=== PATIENT | male | born 1990 | race Caucasian/White ===

== ENCOUNTER 2019-02-12 23:36 | Inpatient (IN) | payer SELFPAY ==
--- NOTE | 2019-02-13 01:11 | PDOC ---
*Physical Exam - Vital Signs Last Vital Signs Temp Pulse Resp BP Pulse Ox 98 F 67 20 146/78 99 02/12/19 23:46 02/12/19 23:46 02/12/19 23:46 02/12/19 23:46 02/12/19 23:46 ED Treatment Course - LABORATORY CBC & Chemistry Diagram: 02/13/19 01:34 02/13/19 01:34 Medical Decision Making - Medical Decision Making 02/13/19 01:11 Patient seen by the advanced practice provider under my direct supervision. Ancillary testing reviewed as necessary. I agree with plan as outlined by the advanced practice provider. *DC/Admit/Observation/Transfer Diagnosis at time of Disposition: Flank pain - Referrals Referrals: Nic Faustin MD., MD [Primary Care Provider] - - Patient Instructions - Post Discharge Activity
[2019-02-13] MEDS ORDERED: KETOROLAC TROMETHAMINE 30 MG/1 ML VIAL IVPUSH ONE (01:15)
--- NOTE | 2019-02-13 01:21 | PDOC ---
History of Present Illness - General Chief Complaint: Pain, Acute Stated Complaint: BACK PAIN Time Seen by Provider: 02/13/19 01:08 History Source: Patient Exam Limitations: No Limitations - History of Present Illness Travel History: No Initial Comments: 02/13/19 01:22 HISTORY OF PRESENT ILLNESS: 28-year-old male with past medical history of bilateral kidney stones presents emergency Department for worsening left flank pain over the past few days. Patient reports he was seen and evaluated by Dr. Faustin of urology and told he had kidney stones and if things were to get worse to present to the emergency department. Patient denies dysuria, hematuria , fevers, chills, nausea, vomiting. No recent travel or sick contacts. PAST MEDICAL HISTORY: see HPI SURGICAL HISTORY: Denies ALLERGIES: No known drug allergies REVIEW OF SYSTEMS General/Constitutional: Denies fever or chills. Denies weakness, weight change. HEENT: Denies change in vision. Denies ear pain or discharge. Denies sore throat. Cardiovascular: Denies chest pain or shortness of breath. Respiratory: Denies cough, wheezing, or hemoptysis. Gastrointestinal: Denies nausea, vomiting, diarrhea or constipation. Denies rectal bleeding. Genitourinary: see HPI Musculoskeletal: Denies joint or muscle swelling or pain. Denies neck or back pain. Skin and breasts: Denies rash or easy bruising. Neurologic: Denies headache, vertigo, loss of consciousness, or loss of sensation. Psychiatric: Denies depression or anxiety. Endocrine: Denies increased thirst. Denies abnormal weight change. Hematologic/Lymphatic: Denies anemia, easy bleeding, or history of blood clots. Allergic/Immunologic: Denies hives or skin allergy. Denies latex allergy. PHYSICAL EXAM General Appearance: Well-appearing, appropriately dressed. No apparent distress , no intoxication. Respiratory/Chest: Lungs CTAB. No shortness of breath, chest tenderness, respiratory distress, accessory muscle use. No crackles, rales, rhonchi, stridor , wheezing, dullness Cardiovascular: RRR. S1, S2. No JVD, murmur, bradycardia, tachycardia. Vascular Pulses: Dorsalis-Pedis (R): 2+, Dorsalis-Pedis (L): 2+ Gastrointestinal/Abdominal: Normal bowel sounds. Abdomen soft, non-distended. No tenderness or rebound tenderness. No organomegaly, pulsatile mass, guarding, hernia, hepatomegaly, splenomegaly. Lymphatic: No adenopathy, tenderness. Musculoskeletal/Extremities: Normal inspection. FROM of all extremities, normal capillary refill. Pelvis Stable. No CVA tenderness. No tenderness to extremities, pedal edema, swelling, erythema or deformity. Past History - Past Medical History Allergies/Adverse Reactions: Allergies Allergy/AdvReac Type Severity Reaction Status Date / Time No Known Allergies Allergy Unverified 02/13/19 05:02 Home Medications: Ambulatory Orders Cephalexin [Keflex] 500 mg PO BID 7 Days #14 capsule 02/14/19 - Suicide/Smoking/Psychosocial Hx Smoking History: Never smoked Hx Alcohol Use: No Drug/Substance Use Hx: No *Physical Exam - Vital Signs Last Vital Signs Temp Pulse Resp BP Pulse Ox 98 F 67 20 146/78 99 02/12/19 23:46 02/12/19 23:46 02/12/19 23:46 02/12/19 23:46 02/12/19 23:46 ED Treatment Course - LABORATORY CBC & Chemistry Diagram: 02/13/19 01:34 02/13/19 01:34 Medical Decision Making - Medical Decision Making 02/13/19 01:23 A/P: 28-year-old male with left flank pain Differential diagnosis includes renal calculi, pyelonephritis, infected stone Urinalysis Urine culture CBC, BMP Toradol 30 mg IV push now Renal ultrasound Reassess 02/13/19 03:11 Ultrasound as read by imaging second language tutor: Right kidney measures 9.7 cm x 4.4 senders by 6.0 cm. No right hydronephrosis. Left kidney measures 11.9 cm by 6.4 cm x 6.2 cm. There is a moderate left hydronephrosis. Therefore the possibility of an obstruction lower down in the left ureter should be considered. Urinalysis notable for trace leukoesterase and 73 WBCs on high-power field. Spiral CT for kidney stone 02/13/19 04:13 Case discussed with who accepts patient for Med/Surg admission. 02/15/19 04:05 *DC/Admit/Observation/Transfer Diagnosis at time of Disposition: Renal calculus, left, UTI (urinary tract infection) - Discharge Dispostion Disposition: HOME Condition at time of disposition: Good Decision to Admit order: Yes - Referrals - Patient Instructions - Post Discharge Activity
[2019-02-13 01:52] LABS: BASO % 0.8 % (0-2.0); EOS % 1.9 % (0-4.5); HEMATOCRIT 43.1 % (35.4-49); HEMOGLOBIN 14.8 GM/dL (11.7-16.9); MCH 30.9 pg (25.7-33.7); MCHC 34.3 g/dl (32.0-35.9); MEAN CELL VOLUME 90.2 fl (80-96); MEAN PLT VOLUME 6.9 fl (7.5-11.1); MONO % 7.3 % (3.8-10.2); PLATELET COUNT 262 K/MM3 (134-434); RBC 4.78 M/mm3 (4.00-5.60); RDW 13.3 % (11.9-15.9); WHITE BLOOD COUNT 8.6 K/mm3 (4.0-10.0)
[2019-02-13 02:16] LABS: ANION GAP 2 MMOL/L (8-16); BLOOD UREA NITROGEN 11 mg/dL (7-18); CALCIUM 9.2 mg/dL (8.5-10.1); CHLORIDE 107 mmol/L (98-107); CO2 29 mmol/L (21-32); CREATININE 0.7 mg/dL (0.55-1.3); GLUCOSE,RANDOM 104 mg/dL (74-106); POTASSIUM 3.7 mmol/L (3.5-5.1); SODIUM 138 mmol/L (136-145)
[2019-02-13 02:20] LABS: URINE APPEARANCE Clear; URINE BILIRUBIN Negative (NEGATIVE); URINE COLOR Yellow; URINE GLUCOSE (UA) Negative (NEGATIVE); URINE KETONE Negative (NEGATIVE); URINE LEUK ESTERASE Trace (NEGATIVE); URINE NITRITE Negative (NEGATIVE); URINE PROTEIN Negative (NEGATIVE); URINE UROBILINOGEN 0.2 mg/dL (0.2-1.0)
[2019-02-13 02:39] LABS: EPI CELLS 8.7 /HPF (0-5); URINE BACTERIA 5.6 /hpf (NEGATIVE); URINE CASTS 2.33 /hpf (0-8); URINE RBC 8.4 /hpf (0-4); URINE WBC 73.7 /hpf (0-5)
[2019-02-13 02:54] LABS: URINE CRYSTALS REVIEW /hpf
[2019-02-13] MEDS ORDERED: CEFTRIAXONE 1 GM in DEXTROSE 5%-WATER - 100 ML IVPB ONE (03:49)
--- NOTE | 2019-02-13 04:11 | HP ---
CHIEF COMPLAINT:Left Flank pain. PCP:Dr Daja Arshad , Dr. Faustin Urologist HISTORY OF PRESENT ILLNESS: 28-year-old male with past medical history of bilateral kidney stones presents emergency Department for worsening left flank pain over the past few days. Patient reports he was seen and evaluated by Dr. Faustin of urology and told he had kidney stones and if things were to get worse to present to the emergency department. Patient denies dysuria, hematuria, fevers, chills, , vomiting.but reports Nausea x 4 . no fever but chills, the left flank pain 7/10 radiated to left inguinal area . reports some headache and some congestion last week other rowell ros is negative ER course was notable for: (1)US kindney , Spiral CT (2)CBC, CMP , UA (3)Ceftriaxone Recent Travel: denies PAST MEDICAL HISTORY: none PAST SURGICAL HISTORY: appendectomy Social History:work in a restaurant Smoking:denies Alcohol:socially Drugs: denies Family History: none HOME MEDICATIONS:none REVIEW OF SYSTEMS CONSTITUTIONAL: Absent: fever, chills, diaphoresis, generalized weakness, malaise, loss of appetite, weight change HEENT: Absent: rhinorrhea, nasal congestion, throat pain, throat swelling, difficulty swallowing, mouth swelling, ear pain, eye pain, visual changes CARDIOVASCULAR: Absent: chest pain, syncope, palpitations, irregular heart rate, lightheadedness , peripheral edema RESPIRATORY: Absent: cough, shortness of breath, dyspnea with exertion, orthopnea, wheezing, stridor, hemoptysis GASTROINTESTINAL: Absent: abdominal pain, abdominal distension, nausea, vomiting, diarrhea, constipation, melena, hematochezia GENITOURINARY: Absent: dysuria, frequency, urgency, hesitancy, hematuria, flank pain, genital pain MUSCULOSKELETAL: Absent: myalgia, arthralgia, joint swelling, back pain, neck pain SKIN: Absent: rash, itching, pallor HEMATOLOGIC/IMMUNOLOGIC: Absent: easy bleeding, easy bruising, lymphadenopathy, frequent infections ENDOCRINE: Absent: unexplained weight gain, unexplained weight loss, heat intolerance, cold intolerance NEUROLOGIC: Absent: headache, focal weakness or paresthesias, dizziness, unsteady gait, seizure, mental status changes, bladder or bowel incontinence PSYCHIATRIC: Absent: anxiety, depression, suicidal or homicidal ideation, hallucinations. PHYSICAL EXAMINATION Vital Signs - 24 hr 02/12/19 23:46 Temperature 98 F Pulse Rate 67 Respiratory 20 Rate Blood Pressure 146/78 O2 Sat by Pulse 99 Oximetry (%) GENERAL: Awake, alert, and fully oriented, in no acute distress. HEAD: Normal with no signs of trauma. EYES: JET, EOMI , , sclera anicteric, conjunctiva clear. ENT:. Moist mucous membranes. NECK: Normal range of motion, supple without lymphadenopathy, JVD, or masses. LUNGS: Breath sounds equal, clear to auscultation bilaterally. No wheezes, and no crackles. No accessory muscle use. HEART: Regular rate and rhythm, normal S1 and S2 without murmur, rub or gallop. ABDOMEN: Soft, nontender, not distended, normoactive bowel sounds, no guarding, + Left CVA tenderness MUSCULOSKELETAL: Normal range of motion at all joints. No bony deformities or tenderness. UPPER EXTREMITIES: 2+ pulses, warm, well-perfused. No cyanosis. No clubbing. No peripheral edema. LOWER EXTREMITIES: 2+ pulses, warm, well-perfused. No calf tenderness. No peripheral edema. NEUROLOGICAL: Cranial nerves II-XII intact. Normal speech. Normal gait. PSYCHIATRIC: Cooperative. Good eye contact. SKIN: Warm, dry, normal turgor, Laboratory Results - last 24 hr 02/13/19 02/13/19 02/13/19 01:34 01:34 01:41 WBC 8.6 RBC 4.78 Hgb 14.8 Hct 43.1 MCV 90.2 MCH 30.9 MCHC 34.3 RDW 13.3 Plt Count 262 MPV 6.9 L Absolute Neuts (auto) 3.9 Neutrophils % 46.0 Lymphocytes % 44.0 H Monocytes % 7.3 Eosinophils % 1.9 Basophils % 0.8 Nucleated RBC % 0 Sodium 138 Potassium 3.7 Chloride 107 Carbon Dioxide 29 Anion Gap 2 L BUN 11 Creatinine 0.7 Creat Clearance w eGFR 133.33 Random Glucose 104 Calcium 9.2 Urine Color Yellow Urine Appearance Clear Urine pH 6.0 Ur Specific [place] 1.020 Urine Protein Negative Urine Glucose (UA) Negative Urine Ketones Negative Urine Blood 2+ H Urine Nitrite Negative Urine Bilirubin Negative Urine Urobilinogen 0.2 Ur Leukocyte Esterase Trace Urine WBC (Auto) 73.7 Urine RBC (Auto) 8.4 Urine Casts (Auto) 2.33 U Epithel Cells (Auto) 8.7 Urine Crystals (Auto) Review A* Urine Bacteria (Auto) 5.6 Ultrasound as read by imaging continuous improvement engineer: Right kidney measures 9.7 cm x 4.4 senders by 6.0 cm. No right hydronephrosis. Left kidney measures 11.9 senders by 6.4 cm x 6.2 cm. There is a moderate left hydronephrosis. Therefore the possibility of an obstruction lower down in the left ureter should be considered. UA: Urinalysis notable for trace leukoesterase and 73 WBCs on high-power field. Spiral CT for kidney: left mid urethral kidney stone 1.4 cm x 8 mm , with moderate left hydronephrosis/ hydroureter, no right ureter stone , fatty liver noted. ASSESSMENT/PLAN: 28 year old male with no pmhx presented with sever left flank pain was found to have left urethral stone with mild hydronephrosis admitted to M/S for further evaluation. # Left obstructed Urethral stones with left hydronephrosis /hydrourether # complicated UTI * sever pain ,UA trace LE, +2 Blood , WBC 79 * pain control with toradol * IV fluids NS @ 150 CC/hr * ABx Ceftrixone 1 gm daily for 5-7 days * Uro consult Dr Faustin * NPO for possible lethirotripsy in AM * strain urine * flomax daily 0.4 to help pass the stone * will need stone analysis after lithirotripsy # Fatty liver , follow up out pt , consulted about diet and life style changes and avoid alcohol. # FEN * F: NS @ 150 CC/hr * Monitor lytes * NPO for now #proph * DVTS: SCDS, B/L , early ambulation # dispo * Obs M/S # Full code Visit type - Emergency Visit Emergency Visit: Yes ED Registration Date: 02/13/19 Care time: The patient presented to the Emergency Department on the above date and was hospitalized for further evaluation of their emergent condition. - New Patient This patient is new to me today: Yes Date on this admission: 02/13/19 - Critical Care Critical Care patient: No
--- NOTE | 2019-02-13 04:52 | PN ---
Teaching Attending Note Name of Resident: Adam Mann ATTENDING PHYSICIAN STATEMENT I saw and evaluated the patient. I reviewed the resident's note and discussed the case with the resident. I agree with the resident's findings and plan as documented. SUBJECTIVE: Patient is a 28-year-old man with past medical history of bilateral kidney stones who presents to the ER for worsening left flank pain over the past few days. Patient reports he was seen and evaluated by Dr. Faustin of urology and told he had kidney stones and if things were to get worse to present to the emergency department. Has nausea and says that he had hematuria 2 months ago when the pain started. Patient denies dysuria, hematuria at this time, fevers, chills, vomiting, headache, SOB or change in bowel habit. He does not smoke, drink alcohol use any illicit drugs. No FH of kidney stones and he has not had a workup to search for stone disease risk factor. He is with 2 children and works as a Director Compensation in a restaurant. OBJECTIVE: Alert Vital Signs Period Temp Pulse Resp BP Sys/Lares Pulse Ox Last 24 Hr 98 F 67 20 146/78 99 HEENT: No Jaundice, eye redness or discharge, PERRLA, EOMI. Normocephalic, atraumatic. External ears are normal and hearing is grossly intact. No nasal discharge. Neck: Supple, nontender. No palpable adenopathy or thyromegaly. No JVD Chest: Good effort. Clear to auscultation and percussion. Heart: Regular. No S3, rub or murmur Abdomen: Not distended, soft, nontender and no HSM. No rebound or guarding. Normal bowel sounds. Ext: Peripheral pulses intact. No leg edema. Skin: Warm and dry. No petechiae, rash or ecchymosis. Neuro: Alert. Oriented x3. CN 2-12 grossly intact. Sensation grossly intact in all four extremities and DTR are symmetric. Psych: Appropriate mood and affect. Good insight. Current Medications Generic Name Dose Route Start Last Admin Trade Name Freq PRN Reason Stop Dose Admin Ceftriaxone Sodium 1 gm/ 100 mls @ 200 mls/hr 02/13/19 03:49 Dextrose IVPB 02/13/19 04:18 ONCE ONE Ketorolac Tromethamine 30 mg 02/13/19 01:15 02/13/19 01:45 Toradol Injection - IVPUSH 02/13/19 01:16 30 mg ONCE ONE Administration Abnormal Lab Results 02/13/19 02/13/19 02/13/19 01:34 01:34 01:41 MPV 6.9 L Lymphocytes % 44.0 H Anion Gap 2 L Urine Blood 2+ H Urine Crystals (Auto) Review A* ASSESSMENT AND PLAN: 1. Kidney stone disease - CT scan of the abdomen/pelvis without contrast showed an obstructing left ureteral stone with moderate hydronephrosis/hydrourter. There is evidence of UTI and urine culture is pending. INR pending. Patient started on IV Rocephin, toradol and will get flomax as well as IV NS at 150 ml/ hour. Being kept NPO and urology consulted. Will strain his urine. Upon discharge will benefit from outpatient comprehensive workup to search for stone disease risk factor. 2. DVT prophylaxis - Lovenox 40 mg SQ q 24 hours. 3. Advance directives - Full code
[2019-02-13] MEDS ORDERED: ACETAMINOPHEN 325 MG TABLET (FP) PO PRN (05:02)
[2019-02-13] MEDS ORDERED: KETOROLAC TROMETHAMINE 15 MG/ML VIAL IVPUSH PRN (05:02)
[2019-02-13] MEDS ORDERED: CEFTRIAXONE 1 GM/50 ML BAG ONE ×2 (05:43→07:44)
[2019-02-13] MEDS: SODIUM CHLORIDE 1,000 ML IV SCH ×2 (05:55→13:05)
[2019-02-13] MEDS ORDERED: cefTRIAXone SODIUM 1 GM VIAL ONE (07:43)
[2019-02-13] MEDS ORDERED: TAMSULOSIN HCL 0.4 MG CAP ONE (07:43)
[2019-02-13] MEDS: TAMSULOSIN HCL 0.4 MG CAP PO SCH (08:10)
[2019-02-13] MEDS ORDERED: ENOXAPARIN NA (PORCINE) 40 MG/0.4 ML DISP.SYRIN SQ SCH (10:00)
--- NOTE | 2019-02-13 12:31 | PN ---
Physical Exam: SUBJECTIVE: Patient seen and examined at bedside. no acute events since admission. pain is ctl. denies fever, cp ,sob, n/v/d OBJECTIVE: Vital Signs Period Temp Pulse Resp BP Sys/Lares Pulse Ox Last 24 Hr 97.5 F-98 F 59-67 14-20 121-146/74-78 99-99 GENERAL: Awake, alert, and fully oriented, in no acute distress. HEAD: Normal with no signs of trauma. EYES: JET, EOMI , , sclera anicteric, conjunctiva clear. ENT:. Moist mucous membranes. NECK: Normal range of motion, supple without lymphadenopathy, JVD, or masses. LUNGS: CTAB HEART: Regular rate and rhythm, normal S1 and S2 without murmur, rub or gallop. ABDOMEN: Soft, nontender, not distended, normoactive bowel sounds, no guarding, + Left CVA tenderness MUSCULOSKELETAL: Normal range of motion at all joints. No bony deformities or tenderness. UPPER EXTREMITIES: 2+ pulses, warm, well-perfused. No cyanosis. No clubbing. No peripheral edema. LOWER EXTREMITIES: 2+ pulses, warm, well-perfused. No calf tenderness. No peripheral edema. NEUROLOGICAL: Cranial nerves II-XII intact. Normal speech. Normal gait. PSYCHIATRIC: Cooperative. Good eye contact. SKIN: Warm, dry, normal turgor, Laboratory Results - last 24 hr 02/13/19 02/13/19 02/13/19 01:34 01:34 01:41 WBC 8.6 RBC 4.78 Hgb 14.8 Hct 43.1 MCV 90.2 MCH 30.9 MCHC 34.3 RDW 13.3 Plt Count 262 MPV 6.9 L Absolute Neuts (auto) 3.9 Neutrophils % 46.0 Lymphocytes % 44.0 H Monocytes % 7.3 Eosinophils % 1.9 Basophils % 0.8 Nucleated RBC % 0 Sodium 138 Potassium 3.7 Chloride 107 Carbon Dioxide 29 Anion Gap 2 L BUN 11 Creatinine 0.7 Creat Clearance w eGFR 133.33 Random Glucose 104 Calcium 9.2 Urine Color Yellow Urine Appearance Clear Urine pH 6.0 Ur Specific [place] 1.020 Urine Protein Negative Urine Glucose (UA) Negative Urine Ketones Negative Urine Blood 2+ H Urine Nitrite Negative Urine Bilirubin Negative Urine Urobilinogen 0.2 Ur Leukocyte Esterase Trace Urine WBC (Auto) 73.7 Urine RBC (Auto) 8.4 Urine Casts (Auto) 2.33 U Epithel Cells (Auto) 8.7 Urine Crystals (Auto) Review A* Urine Bacteria (Auto) 5.6 Active Medications Generic Name Dose Route Start Last Admin Trade Name Freq PRN Reason Stop Dose Admin Acetaminophen 650 mg 02/13/19 05:02 Tylenol - PO Q4H PRN PAIN LEVEL 1-5 Sodium Chloride 1,000 mls @ 150 mls/hr 02/13/19 05:15 02/13/19 05:55 Normal Saline - IV 150 mls/hr ASDIR ESDRAS Administration Ceftriaxone Sodium 1 gm/ 50 mls @ 100 mls/hr 02/14/19 10:00 Dextrose IVPB DAILY [facility] Protocol Ketorolac Tromethamine 15 mg 02/13/19 05:02 Toradol Injection - IVPUSH 02/18/19 05:01 Q6H PRN PAIN LEVEL 6-10 Tamsulosin HCl 0.4 mg 02/13/19 08:30 02/13/19 08:10 Flomax - PO 0.4 mg DAILY@0830 ESDRAS Administration Ultrasound as read by imaging literacy education professor: Right kidney measures 9.7 cm x 4.4 senders by 6.0 cm. No right hydronephrosis. Left kidney measures 11.9 senders by 6.4 cm x 6.2 cm. There is a moderate left hydronephrosis. Therefore the possibility of an obstruction lower down in the left ureter should be considered. UA: Urinalysis notable for trace leukoesterase and 73 WBCs on high-power field. Spiral CT for kidney: left mid urethral kidney stone 1.4 cm x 8 mm , with moderate left hydronephrosis/ hydroureter, no right ureter stone , fatty liver noted. ASSESSMENT/PLAN: 28 yo M with no pmhx presented with sever left flank pain was found to have left urethral stone with mild hydronephrosis admitted to M/S for further evaluation. #Left Urethral stones with left hydronephrosis /hydrourether #complicated UTI UA trace LE, +2 Blood , WBC 79 f/u Ucx pain control with toradol IV fluids NS @ 150 CC/hr ABx Ceftrixone 1 gm daily for 5-[address] Faustin NPO for possible lethirotripsy strain urine flomax daily 0.4 to help pass the stone may need rpt CT as outpt post procedure #Fatty liver , follow up out pt , consulted about diet and life style changes and avoid alcohol. #FEN F: NS @ 150 CC/hr Monitor lytes NPO #proph DVTS: SCDS, B/L , early ambulation # dispo Obs M/S # Full code Visit type - Emergency Visit Emergency Visit: Yes ED Registration Date: 02/13/19 Care time: The patient presented to the Emergency Department on the above date and was hospitalized for further evaluation of their emergent condition. - New Patient This patient is new to me today: Yes Date on this admission: 02/13/19 - Critical Care Critical Care patient: No
[2019-02-13 12:55] VITALS: BMI 26.7
[2019-02-13] MEDS ORDERED: FLU VACCINE QUAD 60 MCG/0.5 ML (MDV 18-19) IM ONE (13:30)
--- NOTE | 2019-02-13 14:42 | EKG ---
Test Reason : Blood Pressure : / mmHG Vent. Rate : 060 BPM Atrial Rate : 060 BPM P-R Int : 206 ms QRS Dur : 090 ms QT Int : 394 ms P-R-T Axes : 038 058 035 degrees QTc Int : 394 ms NORMAL SINUS RHYTHM NORMAL ECG NO PREVIOUS ECGS AVAILABLE Confirmed by Nakul Traore ([id number]) on 02/13/2019 2:41:36 PM Referred By: Confirmed By:Nakul Traore
--- NOTE | 2019-02-13 16:45 | PN ---
Teaching Attending Note Name of Resident: Mu Herbert ATTENDING PHYSICIAN STATEMENT I saw and evaluated the patient. I reviewed the resident's note and discussed the case with the resident. I agree with the resident's findings and plan as documented. SUBJECTIVE:continues to have pain. denies Cp, SOB, fever, chills, N/V/C/D OBJECTIVE: Last Vital Signs Temp Pulse Resp BP Pulse Ox 97.8 F 80 18 126/59 L 99 02/13/19 15:27 02/13/19 15:27 02/13/19 15:27 02/13/19 15:27 02/13/19 12:33 General NAD ASSESSMENT AND PLAN: 28yo M with PMH nephrolithasis presented to the ER with L flank pain and found to have obstructing L renal stone with hydronephrosis 1. L obstructing nephrolithasis with hydronephrosis- NPO for ESW therapy today. currently being sent to OR for procedure. cont NPO, IVF, flomax and pain control. will need stone analysis to determine etiology 2. UTI- on ceftriaxone day 1. f/u Cx 3. DVT ppx- EAM 4. anticipate d/c in next 24-48H
[2019-02-13] MEDS ORDERED: MIDAZOLAM HCL 2 MG/2 ML SINGLE DOSE VIAL ONE (16:47)
[2019-02-13] MEDS ORDERED: PROPOFOL 20 ML ONE (16:47)
[2019-02-13] MEDS ORDERED: ceFAZolin SODIUM 1 GM VIAL IVPB ONE (17:54)
[2019-02-13] MEDS ORDERED: ceFAZolin SODIUM 1 GM VIAL ONE (17:54)
[2019-02-13] MEDS ORDERED: DEXAMETHASONE SOD PHOSPHATE 4 MG/1 ML VIAL ONE (18:02)
--- NOTE | 2019-02-13 18:41 | OP ---
Operative Note - Note: Operative Date: 02/13/19 Pre-Operative Diagnosis: Left ureteral calculus Operation: Left ureteroscopy laser lithotripsy stent placement Findings: 13 mm left distal ureteral stone Post-Operative Diagnosis: Same as Pre-op Surgeon: Nic Faustin MD. Anesthesia: General Estimated Blood Loss (mls): 5 Drains & Tubes with Location: left DJ stent Operative Report Dictated: Yes
[2019-02-13] MEDS ORDERED: ONDANSETRON 4 MG/2 ML VIAL IVPUSH PRN (18:47)
[2019-02-13] MEDS ORDERED: oxyCODONE HCL 5 MG TABLET PO PRN (18:47)
[2019-02-13] MEDS ORDERED: LACTATED RINGERS SOLUTION 1,000 ML IV SCH (19:00)
--- NOTE | 2019-02-13 19:52 | OP ---
DATE OF OPERATION: 02/13/2019 PREOPERATIVE DIAGNOSIS: Left ureteral calculus. POSTOPERATIVE DIAGNOSIS: Left ureteral calculus. PROCEDURE: Left ureteroscopy, laser lithotripsy, and stent placement. HISTORY: This is a pleasant, 28-year-old gentleman with a history of severe, left-sided hydronephrosis and renal colic. Patient was noted to have a 13-mm distal ureteral calculus with obstruction. After discussing treatment options, the patient elected to undergo the above-stated procedure. Risks and benefits of treatment alternatives were discussed in detail. All questions were answered. BRIEF OPERATIVE NOTE: Patient was brought into the operating room, placed in supine position. Once general anesthesia was administered, intravenous antibiotics were given. A timeout was performed. The patient was transferred to the dorsal lithotomy position, prepped and draped in standard sterile fashion. Intravenous antibiotics were given. At this time, a 22-Indonesian cystoscope sheath was placed in the bladder under direct vision. The urethra was normal. The prostate was SUBJECTIVE:-occlusive. The bladder was unremarkable. At this time, a 0.038 guidewire was passed into the left renal pelvis. This was confirmed fluoroscopically. A 7.5-Indonesian flexible Storz ureteroscope was then passed alongside the wire into the distal ureter. At which time, the stone was visualized clearly. The 365-micron fiber was used to fragment the stone in multiple small fragments which took approximately 20 minutes. No fragments appeared to proceed up antegrade. At this time, a 22-cm, 6-Indonesian, double-J stent was placed under fluoroscopic guidance. All other instruments were removed. The bladder was drained and the patient brought to recovery room in stable and satisfactory condition. Faisal [id number]
[2019-02-13] MEDS ORDERED: PT OWN MED DRAWER 7, Y5N ONE (21:40)
[2019-02-14] MEDS: SODIUM CHLORIDE 1,000 ML IV SCH (05:43)
--- NOTE | 2019-02-14 08:19 | DS ---
Physical Exam: SUBJECTIVE: Patient seen and examined at bedside. no acute events overnight. POD1 Left ureteroscopy laser lithotripsy stent placement. pain is ctl. denies fever, cp ,sob, n/v/d OBJECTIVE: Vital Signs Period Temp Pulse Resp BP Sys/Lares Pulse Ox Last 24 Hr 97.7 F-98.1 F 59-91 14-18 103-134/44-76 99-100 PHYSICAL EXAM GENERAL: Awake, alert, and fully oriented, in no acute distress. HEAD: Normal with no signs of trauma. EYES: JET, EOMI , , sclera anicteric, conjunctiva clear. ENT:. Moist mucous membranes. NECK: Normal range of motion, supple without lymphadenopathy, JVD, or masses. LUNGS: CTAB HEART: Regular rate and rhythm, normal S1 and S2 without murmur, rub or gallop. ABDOMEN: Soft, nontender, not distended, normoactive bowel sounds, no guarding, no CVA tenderness MUSCULOSKELETAL: Normal range of motion at all joints. No bony deformities or tenderness. UPPER EXTREMITIES: 2+ pulses, warm, well-perfused. No cyanosis. No clubbing. No peripheral edema. LOWER EXTREMITIES: 2+ pulses, warm, well-perfused. No calf tenderness. No peripheral edema. NEUROLOGICAL: Cranial nerves II-XII intact. Normal speech. Normal gait. PSYCHIATRIC: Cooperative. Good eye contact. SKIN: Warm, dry, normal turgor, LABS Ultrasound as read by imaging circulation manager: Right kidney measures 9.7 cm x 4.4 senders by 6.0 cm. No right hydronephrosis. Left kidney measures 11.9 senders by 6.4 cm x 6.2 cm. There is a moderate left hydronephrosis. Therefore the possibility of an obstruction lower down in the left ureter should be considered. UA: Urinalysis notable for trace leukoesterase and 73 WBCs on high-power field. Spiral CT for kidney: left mid urethral kidney stone 1.4 cm x 8 mm , with moderate left hydronephrosis/ hydroureter, no right ureter stone , fatty liver noted. HOSPITAL COURSE: Date of Admission:02/13/19 Date of Discharge: 02/14/19 28 yo M with no pmhx presented with sever left flank pain was found to have left urethral stone with mild hydronephrosis Admitted for Left Urethral stones with left hydronephrosis /hydrourether, now POD1 Left ureteroscopy laser lithotripsy stent placement w/o complication. Uro consulted Dr Faustin. stressed importance that he needs to f/u with uro for stent removal. food avoidance that can potentiate stone formation. increase po water intake. will need repeat renal u/s to f/u for resolution of hydropnephrosis. #UTI d/c on keflex 500mg bid to complete 7 day course #Fatty liver , follow up out pt , consulted about diet and life style changes and avoid alcohol. pt is stable and ready for dc w/ appropriate f/u Minutes to complete discharge: 38 Discharge Summary Reason For Visit: URINARY TRACT INFECTION, CALCULUS OF LEFT KIDNEY Current Active Problems Renal calculus, left (Acute) UTI (urinary tract infection) (Acute) Condition: Good - Instructions Diet, Activity, Other Instructions: you came in for flank pain and were found to have a kidney stone. you were seen by Urologist Dr. Faustin and he did a lithotripsy procedure to break up and remove the stone. He also placed a stent to help keep your ureter open and draining. Please resume your home meds Please take antibioitc keflex 500mg twice a day for 7 days to help treat your urinary tract infection Please discuss with your primary care physician or with Urologist Dr. Faustin about repeating your kidney ultrasound to see if your kidneys have improved and there is no more obstruction DIET please avoid high protein diet such as meat, sea food etc..., and soda Please drink plenty of water to help avoid getting more stones. Please eat a lot of fruits and vegetables Please discuss with your primary care physician about why you are getting kidney stones and if you need any further work up Please follow up with your primary care physician within 1 week Please follow up with Urologist Dr. Faustin within 1 week If you experience any fevers, chills, blood in your urine, worsening flank pain , please call 911 or got to the ER Referrals: Nic Faustin MD., [Primary Care Provider] - 1 Week Disposition: HOME - Home Medications Comprehensive Discharge Medication List: Ambulatory Orders NK [No Known Home Medication] 02/13/19 This patient is new to me today: Yes Date on this admission: 02/14/19 Emergency Visit: Yes ED Registration Date: 02/13/19 Care time: The patient presented to the Emergency Department on the above date and was hospitalized for further evaluation of their emergent condition. Critical Care patient: No - Discharge Referral Referred to [facility] Med P.C.: No
--- NOTE | 2019-02-14 08:53 | PN ---
Teaching Attending Note Name of Resident: Mu Herbert ATTENDING PHYSICIAN STATEMENT I saw and evaluated the patient. I reviewed the resident's note and discussed the case with the resident. I agree with the resident's findings and plan as documented. SUBJECTIVE:some L flank pain but overall improved since arrival. denies Cp, SOB , fever, chills, n/V/C/D, hematuria, OBJECTIVE: Last Vital Signs Temp Pulse Resp BP Pulse Ox 97.7 F 91 H 18 124/76 99 02/14/19 06:00 02/14/19 06:00 02/14/19 06:00 02/14/19 06:00 02/13/19 21:00 General NAD CV S1 S2 RRR no murmur/rub/gallop Lungs CTA B/L no wheezing/rales/rhonchi Abdomen soft slight L flank tenderness no rebound or guarding ASSESSMENT AND PLAN: 28yo M with no PMH presented to the ER with L flank pain and found to have obstructing L renal stone with hydronephrosis 1. L obstructing nephrolithasis with hydronephrosis-s/p Left ureteroscopy laser lithotripsy stent placement on 02/13. stressed importance that he needs to f /u with uro for stent removal. food avoidance that can potentiate stone formation. increase po water intake. will need repeat renal u/s to f/u for resolution of hydropnephrosis. 2. UTI- d/c on keflex to complete 7 day course 3. DVT ppx- EAM 4. d/c home. counseled on dietary and medication changes
[2019-02-14] MEDS ORDERED: CEFTRIAXONE 1 GM in DEXTROSE 5%-WATER - 100 ML IVPB SCH (10:00)
[2019-02-14] MEDS ORDERED: CEFTRIAXONE 1 GM in DEXTROSE 5%-WATER - 50 ML IVPB SCH (10:00)
[2019-02-14 10:30] VITALS: BP 112/59; PULSE 80; TEMP 98.1
[2019-02-14] MEDS ORDERED: DEXTROSE 5%-WATER - 50 ML IVPB ONE (10:41)
[2019-02-14] MEDS ORDERED: cefTRIAXone SODIUM 1 GM VIAL ONE (10:41)
[2019-02-14] MEDS: TAMSULOSIN HCL 0.4 MG CAP PO SCH (10:46)
== END 2019-02-14 12:13 | disposition home or self-care (01) | DRG 465 ==
LOC: JER 23:36 → JERBED 02-13 04:11 → J5S 02-13 11:29
PROVIDERS: ADMIT Internal Medicine; ATTEND Internal Medicine
PROC: 0T778DZ Dilation of Left Ureter with Intraluminal Device, Via Natural or Artificial Opening Endoscopic (ICD-10-PCS; principal; 2019-02-13 12:00)
PROC: 0TF78ZZ Fragmentation in Left Ureter, Via Natural or Artificial Opening Endoscopic (ICD-10-PCS; 2019-02-13 12:00)
DX: N13.2 Hydronephrosis with renal and ureteral calculous obstruction (principal); N39.0 Urinary tract infection, site not specified; K76.0 Fatty (change of) liver, not elsewhere classified
CPT/HCPCS: 36415; 74176-TC; 76000-TC-FY; 76775-TC; 80048; 81003; 85025; 87086; 93005; 93010; 94760; 99285-25; J7030

== ENCOUNTER 2020-06-24 04:33 | Day surgery (SDC) | payer OTHER ==
[2020-06-20 09:19] VITALS: BMI 23.1
[2020-06-24] MEDS ORDERED: MIDAZOLAM HCL 2 MG/2 ML SINGLE DOSE VIAL ONE (13:24)
[2020-06-24] MEDS ORDERED: KETOROLAC TROMETHAMINE 30 MG/1 ML VIAL ONE (13:31)
[2020-06-24] MEDS ORDERED: DEXAMETHASONE SOD PHOSPHATE 4 MG/1 ML VIAL ONE (13:31)
[2020-06-24] MEDS ORDERED: ceFAZolin SODIUM 1 GM VIAL ONE (13:31)
[2020-06-24] MEDS ORDERED: ceFAZolin SODIUM 1 GM VIAL IVPB ONE (13:45)
[2020-06-24] MEDS ORDERED: LACTATED RINGERS SOLUTION 1,000 ML IV SCH (14:30)
--- NOTE | 2020-06-24 16:19 | OP ---
Operative Note - Note: Operative Date: 06/24/20 Pre-Operative Diagnosis: Left renal stone Operation: Left ureteroscopy laser lithotripsy stent placement Findings: left renal stone Post-Operative Diagnosis: Same as Pre-op Surgeon: Nic Faustin MD. Anesthesia: General
[2020-06-24] MEDS ORDERED: ACETAMINOPHEN 1000 MG/100 ML VIAL (NON FORMULARY) IVPB ONE (17:06)
[2020-06-24 17:56] VITALS: BP 123/68; PULSE 68; TEMP 97.5
--- NOTE | 2020-06-25 18:22 | OP ---
DATE OF OPERATION: 06/24/2020 PREOPERATIVE DIAGNOSIS: Left renal calculus. POSTOPERATIVE DIAGNOSIS: Left renal calculus. PROCEDURE: Left ureteroscopy, laser lithotripsy, stent placement. HISTORY: This is a very pleasant 29-year-old gentleman with history of 8-mm renal calculus. After discussing treatment options, the patient elected to undergo above-stated procedure. Risks and benefits of treatment, alternative treatments discussed in detail. All questions were answered. BRIEF OPERATIVE NOTE: The patient is brought in the operating room, placed in supine position. Once general anesthesia was administered, the patient was transferred to dorsal lithotomy position, prepped and draped in standard sterile fashion. Intravenous antibiotics were given. A number 22 Sammarinese cystoscope sheath was placed in the bladder under direct vision. The bladder was unremarkable. There were no urethral strictures. The left ureteral orifice was identified, a 0.038 guidewire was passed into the left renal pelvis. This was confirmed fluoroscopically. First a semirigid ureteroscope was used to inspect distal ureter. There was no stone identified in the distal and mid ureter. At this point, a 7.5 Sammarinese flexible ureteroscope was passed into the renal pelvis. The stone was visualized in the middle pole. Using the holmium laser at a setting of 1 joule and 10 MHz, the stone was fragmented into multiple small sub 1-mm or so fragments. There was no evidence of residual fragments of 2 mm or greater . At this time a stent was passed over a guidewire and fluoroscopically confirmed to be in normal position. The patient was transferred to recovery room in stable and satisfactory condition. Faisal [id number]
== END 2020-06-24 17:56 | disposition home or self-care (01) ==
LOC: JASU-SURG 04:33
PROVIDERS: ATTEND Urology
PROC: 0TC48ZZ Extirpation of Matter from Left Kidney Pelvis, Via Natural or Artificial Opening Endoscopic (ICD-10-PCS; principal; 2020-06-24 13:00)
PROC: 0T778DZ Dilation of Left Ureter with Intraluminal Device, Via Natural or Artificial Opening Endoscopic (ICD-10-PCS; 2020-06-24 13:00)
DX: N20.0 Calculus of kidney (principal)
CPT/HCPCS: 76000-TC-FY; 94760; J0131